=== PATIENT | male | born 1965 | race Caucasian/White ===

== ENCOUNTER 2016-04-12 18:09 | Emergency (ER) | payer BC, MEDICAID, OTHER ==
[~2016-04-12] VITALS: Ht 182.9 cm; Wt 83.9 kg
[2016-04-12 18:33] VITALS: BP 125/79; PULSE 59; RESP 16; TEMP 98.5; O2SAT 100
[2016-04-12] MEDS ORDERED: CELE20TA PO (21:57)
[2016-04-12] MEDS ORDERED: AMBI5TAB PO (21:57)
[2016-04-12] MEDS ORDERED: GABA800T PO (21:57)
[2016-04-12] MEDS ORDERED: IMIT50TA PO (21:57)
[2016-04-12] MEDS ORDERED: TOPI1TAB31 PO (21:57)
--- NOTE | 2016-04-12 22:27 | RADHPO ---
EXAM DATE/TIME: 04/12/2016 22:02 [facility] COMPARISON: No previous studies available for comparison. INDICATIONS : Left leg pain and swelling. MEDICAL HISTORY : Left leg pain and swelling. SURGICAL HISTORY : None. ENCOUNTER: Initial ACUITY: 1 day PAIN SCORE: 3/10 LOCATION: Left leg. TECHNIQUE: Venous ultrasound of the leg was performed from the inguinal ligament to the proximal calf. Real-arsh e, color Doppler and spectral tracing, compression and augmentation techniques were used. FINDINGS: There is normal compressibility of the deep venous system from the inguinal region to the proximal ca lf. No echogenic clot is seen in the lumen of the common femoral, femoral, popliteal, and posterior tibial veins. There is a normal response of the venous system to proximal and distal augmentation an d respiration. CONCLUSION: No DVT of the left lower extremity. Bassem Tse MD on April 12, 2016 at 22:26 Board Certified Radiologist. This report was verified electronically.
--- NOTE | 2016-04-12 22:29 | PD ---
HPI . Left leg pain and swelling Chief Complaint: Edema Time Seen by Provider: 21:39 Travel History International Travel<30 days: No Contact w/Intl Traveler<30days: No Traveled to known affect area: No History of Present Illness HPI Patient presents with about a 2 day history of left lower extremity pain, swelling and discoloration. He denies any associated chest pain or shortness of breath. He denies any known etiology for his symptoms. He is a runner has not injured himself at all in the recent past. He reports a recent flight here from [place]. [facility] Social History Tobacco Use: No Allergies-Medications (Allergen,Severity, Reaction): Coded Allergies: No Known Allergies (Unverified , 04/12/16) Reported Meds & Prescriptions Reported Meds & Active Scripts Active Reported Imitrex (Sumatriptan Succinate) 50 Mg Tab 50 Mg PO ONCE PRN If a satisfactory response has not been obtained at 2 hours, a second dose may be administered Ambien (Zolpidem Tartrate) 5 Mg Tab 5 Mg PO HS PRN Celexa (Citalopram Hydrobromide) 20 Mg Tab 20 Mg PO DAILY Topiramate 100 Mg Tab 100 Mg PO BID Gabapentin 800 Mg Tab 1,600 Mg PO DAILY Review of Systems Except as stated in HPI: all other systems reviewed are Neg General / Constitutional: No: Fever, Chills Cardiovascular: No: Chest Pain or Discomfort Respiratory: No: Shortness of Breath Musculoskeletal: Positive: Myalgias (very mild discomfort in the left lower extremity), Other (swelling of the left lower extremity) Skin: Positive Other (bruising of the medial aspect of the left lower extremities) Physical Exam Narrative GENERAL: Healthy-appearing man who is in no acute distress. SKIN: Warm and dry. HEAD: Atraumatic. Normocephalic. EYES: Pupils equal and round. ENT: No nasal bleeding or discharge. NECK: Trachea midline. Full range of motion without apparent pain. CARDIOVASCULAR: Regular rate and rhythm. RESPIRATORY: No accessory muscle use. MUSCULOSKELETAL: No obvious deformities. He has some subtle swelling of the left lower extremity with some bruising to the medial aspect of the left ankle. NEUROLOGICAL: Awake and alert. No obvious cranial nerve deficits. Motor grossly within normal limits. Normal speech. PSYCHIATRIC: Appropriate mood and affect; insight and judgment normal. Data Data Last Documented VS Vital Signs Date Time Temp Pulse Resp B/P Pulse Ox O2 Delivery O2 Flow Rate FiO2 04/12/16 18:33 98.5 59 16 125/79 100 Orders Us Leg Venous Doppler (04/12/16 21:39) MDM Medical Decision Making Medical Screen Exam Complete: Yes Emergency Medical Condition: Yes Differential Diagnosis Differential diagnosis of leg pain includes but is not limited to lumbar radiculopathy, arthritis, myalgias, DVT. Narrative Course Patient presents for evaluation of a swollen left lower extremity. He has no symptoms of PE such as chest pain or shortness of breath. Ultrasound is negative for DVT. I suspect that he has a ruptured Little's cyst. Diagnosis Primary Impression: Pain and swelling of left lower leg Patient Instructions: General Instructions, RICE Therapy (ED) Med/Other Pt SpecificInfo: Prescription(s) given Scripts Ibuprofen 800 Mg [id number] Mg PO Q8H PRN (pain) #90 TAB Ref 0 Prov:Airam Lance MD 04/12/16 Disposition: 01 DISCHARGE HOME Condition: Stable Airam Lance MD Apr 12, 2016 22:29
[2016-04-12] MEDS ORDERED: IBUP800T23 PO (22:35)
[2016-04-12 22:51] VITALS: BP 123/89; PULSE 50; RESP 18; O2SAT 96
== END 2016-04-12 23:08 | disposition home or self-care (01) ==
LOC: PHED 18:09
DX: M79.605 Pain in left leg (principal); M79.89 Other specified soft tissue disorders
CPT/HCPCS: 93971

== ENCOUNTER 2016-04-16 13:40 | Emergency (ER) | payer BC, MEDICAID ==
[~2016-04-16] VITALS: Ht 182.9 cm; Wt 82.0 kg
[~2016-04-16 13:40] MED LIST: AMBI5TAB PO; CELE20TA PO; GABA800T PO; IBUP800T23 PO; IMIT50TA PO; TOPI1TAB31 PO
[2016-04-16 13:44] VITALS: BP 124/61; PULSE 68; RESP 16; TEMP 97.1; O2SAT 97
--- NOTE | 2016-04-16 15:18 | PD ---
HPI Chief Complaint: Musculoskeletal Complaint Time Seen by Provider: 15:16 Travel History International Travel<30 days: No Contact w/Intl Traveler<30days: No Traveled to known affect area: No History of Present Illness HPI Patient is a 51-year-old male who presents emergency for evaluation of right knee pain. Patient was seen and evaluated in the emergency department a few days ago, an ultrasound was performed and his complaint at that time of right lower leg swelling. Patient states when he performed the ultrasound and pressed on the back of his knee with the probe he felt pain. Since that time he felt a lump behind his right knee. He states the swelling in his leg is better, he no longer has bruising on his foot. Patient is a runner, running approximately 3 miles a day. He denies any injury or trauma. PFSH Past Medical History Bipolar Disorder: Yes Anxiety: Yes Depression: Yes Diminished Hearing: No Immunizations Current: Yes Social History Alcohol Use: No Tobacco Use: No Substance Use: No Allergies-Medications (Allergen,Severity, Reaction): Coded Allergies: No Known Allergies (Unverified , 04/16/16) Reported Meds & Prescriptions Reported Meds & Active Scripts Active Ibuprofen 800 Mg Tab 800 Mg PO Q8H PRN Reported Imitrex (Sumatriptan Succinate) 50 Mg Tab 50 Mg PO ONCE PRN If a satisfactory response has not been obtained at 2 hours, a second dose may be administered Ambien (Zolpidem Tartrate) 5 Mg Tab 5 Mg PO HS PRN Celexa (Citalopram Hydrobromide) 20 Mg Tab 20 Mg PO DAILY Topiramate 100 Mg Tab 100 Mg PO BID Gabapentin 800 Mg Tab 1,600 Mg PO DAILY Review of Systems Except as stated in HPI: all other systems reviewed are Neg Musculoskeletal: Positive: Pain (behind right knee) Physical Exam Narrative GENERAL: Well-nourished, well-developed patient. SKIN: Warm and dry. HEAD: Normocephalic. EYES: No scleral icterus. No injection or drainage. NECK: Supple, trachea midline. No JVD or lymphadenopathy. CARDIOVASCULAR: Regular rate and rhythm without murmurs, gallops, or rubs. RESPIRATORY: Breath sounds equal bilaterally. No accessory muscle use. GASTROINTESTINAL: Abdomen soft, non-tender, nondistended. MUSCULOSKELETAL: No cyanosis, or edema. Tenderness to palpation on posterior right knee. Positive pedal pulses, brisk capillary refill. No peripheral edema noted. Negative Homans sign BACK: Nontender without obvious deformity. No CVA tenderness. Data Data Last Documented VS Vital Signs Date Time Temp Pulse Resp B/P Pulse Ox O2 Delivery O2 Flow Rate FiO2 04/16/16 13:44 97.1 68 16 124/61 97 Orders Knee, Complete (4vws) (04/16/16 ) [facility] Medical Decision Making Medical Screen Exam Complete: Yes Emergency Medical Condition: Yes Interpretation(s) Vital Signs Date Time Temp Pulse Resp B/P Pulse Ox O2 Delivery O2 Flow Rate FiO2 04/16/16 13:44 97.1 68 16 124/61 97 Differential Diagnosis Sprain versus strain versus fracture versus tear versus other Narrative Course Patient is 51-year-old male who presents emergency department for reevaluation of left knee pain. Patient was seen and evaluated in the emergency department on April 12, at that time a DVT was ruled out. Patient reports improvement in the swelling in his left lower leg but reports pain behind the knee. X-ray of the knee was obtained, no acute abnormality noted, no popliteal cyst noted. Patient is encouraged to follow-up with the primary doctor or an orthopedic surgeon for further evaluation and management. Patient was encouraged to rest, ice, elevate extremity as needed. He can take anti-inflammatory medications for pain. Patient verbalized understanding of these instructions. Patient is stable for discharge. Diagnosis Primary Impression: Knee pain Qualified Code: M25.562 - Left knee pain, unspecified chronicity Referrals: Orthopaedic Surgeon Primary Care Physician Patient Instructions: General Instructions, Knee Pain (ED) Additional Instructions: Follow-up with a primary doctor and/or orthopedic surgeon for further evaluation management Rest, ice, elevate extremity Take [id number] acetaminophen or ibuprofen as needed and as directed for pain Return to emergency department for any new or worsening symptoms Med/Other Pt SpecificInfo: No Change to Meds Disposition: 01 DISCHARGE HOME Condition: Stable Janine Jose Apr 16, 2016 15:18
--- NOTE | 2016-04-16 15:56 | RADHPO ---
EXAM DATE/TIME: 04/16/2016 15:14 [facility] COMPARISON: No previous studies available for comparison. INDICATIONS : Patient states pain in posterior aspect of knee for four days. Patient had ultrasound four days ago. MEDICAL HISTORY : None. SURGICAL HISTORY : None. ENCOUNTER: Initial ACUITY: 4 - 6 days PAIN SCORE: 0/10 LOCATION: Left Knee. FINDINGS: Four view examination of the left knee demonstrates no evidence of fracture or dislocation. Bony min eralization is normal. The articular surfaces are intact. The suprapatellar soft tissues have a nor mal configuration. CONCLUSION: Negative for fracture. Ultrasound did not show an popliteal cyst. Jordy David MD FACR on April 16, 2016 at 15:54 Board Certified Radiologist. This report was verified electronically.
== END 2016-04-16 16:20 | disposition home or self-care (01) ==
LOC: PHED 13:40 → PHEFT 16:20
DX: M25.562 Pain in left knee (principal)
CPT/HCPCS: 73564; 99283